=== PATIENT | male | born 1965 | race Two or more races ===

== ENCOUNTER 2020-05-08 07:20 | Emergency (ER) | payer SELFPAY ==
[2020-05-08] MEDS ORDERED: Ondansetron 4 MG/2 ML SDV IVPUSH ONE (07:52)
[2020-05-08] MEDS ORDERED: Sodium Chloride 0.9% 10 ML Syringe FLUSH PRN (07:52)
[2020-05-08] MEDS ORDERED: Sodium Chloride 0.9% 1,000 ML IV SCH (08:00)
--- NOTE | 2020-05-08 11:11 | US ---
Limited abdominal ultrasound: Multiple real-time images of the upper right abdomen were obtained. Comparison: No previous abdominal imaging is available. Findings: Liver contains no focal abnormality. CHD and CBD are dilated up to 1.7 cm. Mild intrahepatic biliary duct dilatation is also noted. No definite filling defects are seen within the dilated biliary ducts. Previous cholecystectomy is noted. Pancreas is mostly obscured from bowel gas. Inferior vena cava is patent. Main portal vein shows normal hepatopedal flow. Right kidney shows no hydronephrosis or mass. Right kidney has a length of 12.7 cm. Impression: 1. Prominently dilated CHD and CBD measuring up to 1.7 cm. Mild intrahepatic biliary duct dilatation is seen. Previous cholecystectomy is noted. 2. No additional abnormality is appreciated on right upper quadrant abdominal ultrasound. Diagnostic code #3 This report was dictated in MDT
--- NOTE | 2020-05-08 11:32 | EDM.PDOC ---
ED HPI GENERAL MEDICAL PROBLEM - General Chief Complaint: Abdominal Pain Stated Complaint: ABD PAIN/VOMITTING Time Seen by Provider: 05/08/20 07:49 Source of Information: Reports: Patient, RN Notes Reviewed - History of Present Illness INITIAL COMMENTS - FREE TEXT/NARRATIVE: 55 yr old male has been ill for about 3 days with abd pain, off and on vomiting. Pain is RUQ and upper mid abd. Hx of previous cholecystectomy. Does not drink alcohol. The pain has been steady, does not go away. Eating makes the pain and N/Vomiting worse. No chest pain, cough, fever or difficulty breathing. Abdomen Pain Score (Numeric/FACES): 10 - Related Data Allergies Allergy/AdvReac Type Severity Reaction Status Date / Time No Known Allergies Allergy Verified 05/08/20 07:38 Home Meds: Home Meds . [No Known Home Meds] 05/08/20 [History] Past Medical History - Past Surgical History GI Surgical History: Reports: Cholecystectomy Social & Family History - Tobacco Use Smoking Status *Q: Never Smoker Second Hand Smoke Exposure: No - Caffeine Use Caffeine Use: Reports: Coffee - Recreational Drug Use Recreational Drug Use: No ED ROS GENERAL - Review of Systems Review Of Systems: See Below Constitutional: Reports: Chills. Denies: Fever HEENT: Reports: No Symptoms Respiratory: Denies: Shortness of Breath, Cough Cardiovascular: Denies: Chest Pain GI/Abdominal: Reports: Abdominal Pain, Nausea, Vomiting. Denies: Hematochezia, Melena Musculoskeletal: Reports: Back Pain Skin: Reports: Jaundice Neurological: Reports: Dizziness ED EXAM, GI/ABD - Physical Exam Exam: See Below General Appearance: Alert, Mild Distress Eyes: Bilateral: Pale Conjunctiva (bilat sclera icterus) Head: Atraumatic. No: Facial Swelling Neck: Supple Respiratory/Chest: No Respiratory Distress, Lungs Clear, Normal Breath Sounds Cardiovascular: Regular Rate, Rhythm GI/Abdominal Exam: Tender (R upper abd and upper mid abd) Back Exam: No: CVA Tenderness (L), CVA Tenderness (R) Extremities: Normal Inspection. No: Pedal Edema, Leg Pain Neurological: Alert, Oriented, No Motor/Sensory Deficits Skin Exam: Warm, Dry, No Rash Course - Vital Signs Last Recorded V/S: Last Vital Signs Temp 100.8 F H 05/08/20 12:58 Pulse 74 05/08/20 11:50 Resp 16 05/08/20 11:50 BP 153/97 H 05/08/20 11:50 Pulse Ox 98 05/08/20 11:50 - Orders/Labs/Meds Orders: Active Orders 24 hr Category Date Time Status Peripheral IV Care [RC] . DIRECTED Care 05/08/20 07:52 Active Sodium Chloride 0.9% [Normal Saline] 1,000 ml Med 05/08/20 08:00 Active IV ONETIME Sodium Chloride 0.9% [Saline Flush] Med 05/08/20 07:52 Active 10 ml FLUSH ASDIRECTED PRN Peripheral IV Insertion Adult [OM.PC] Stat Oth 05/08/20 07:52 Ordered Medication Orders Sodium Chloride (Normal Saline) 1,000 mls @ 999 mls/hr IV ONETIME BRITNEY Last Admin: 05/08/20 08:17 Dose: 999 mls/hr Documented by: MINAL Sodium Chloride (Saline Flush) 10 ml FLUSH ASDIRECTED PRN PRN Reason: Keep Vein Open Last Admin: 05/08/20 08:17 Dose: 10 ml Documented by: MINAL Labs: Laboratory Tests 05/08/20 05/08/20 05/08/20 Range/Units 07:55 07:55 07:55 WBC 8.47 (4.23-9.07) K/mm3 RBC 6.03 (4.63-6.08) M/mm3 Hgb 15.1 (13.7-17.5) gm/dl Hct 45.3 (40.1-51.0) % MCV 75.1 L (79.0-92.2) fl MCH 25.0 L (25.7-32.2) pg MCHC 33.3 (32.2-35.5) g/dl RDW Std Deviation 44.5 H (35.1-43.9) fL Plt Count 225 (163-337) K/mm3 MPV 10.5 (9.4-12.3) fl Neut % (Auto) 77.8 H (34.0-67.9) % Lymph % (Auto) 10.3 L (21.8-53.1) % [place] % (Auto) 11.5 (5.3-12.2) % Eos % (Auto) 0.1 L (0.8-7.0) Baso % (Auto) 0.1 (0.1-1.2) % Neut # (Auto) 6.59 H (1.78-5.38) K/mm3 Lymph # (Auto) 0.87 L (1.32-3.57) K/mm3 [place] # (Auto) 0.97 H (0.30-0.82) K/mm3 Eos # (Auto) 0.01 L (0.04-0.54) K/mm3 Baso # (Auto) 0.01 (0.01-0.08) K/mm3 Sodium 136 (136-145) mEq/L Potassium 3.4 L (3.5-5.1) mEq/L Chloride 98 (98-107) mEq/L Carbon Dioxide 26 (21-32) mEq/L Anion Gap 15.4 H (5-15) BUN 19 H (7-18) mg/dL Creatinine 0.9 (0.7-1.3) mg/dL Est Cr Clr Drug Dosing 93.83 mL/min Estimated GFR (MDRD) > 60 (>60) mL/min BUN/Creatinine Ratio 21.1 H (14-18) Glucose 124 H (74-106) mg/dL Calcium 8.7 (8.5-10.1) mg/dL Total Bilirubin 9.5 H (0.2-1.0) mg/dL GGT 1543 H (15-85) U/L AST 153 H (15-37) U/L ALT 471 H (16-63) U/L Alkaline Phosphatase 357 H (46-116) U/L Total Protein 7.4 (6.4-8.2) g/dl Albumin 3.1 L (3.4-5.0) g/dl Globulin 4.3 gm/dL Albumin/Globulin Ratio 0.7 L (1-2) Lipase 74 (73-393) U/L Meds: Medications Generic Name Dose Route Start Last Admin Trade Name Freq PRN Reason Stop Dose Admin Sodium Chloride 1,000 mls @ 999 mls/hr 05/08/20 08:00 05/08/20 08:17 Normal Saline IV 999 mls/hr ONETIME BRITNEY Administration Sodium Chloride 10 ml 05/08/20 07:52 05/08/20 08:17 Saline Flush FLUSH 10 ml ASDIRECTED PRN Administration Keep Vein Open Discontinued Medications Generic Name Dose Route Start Last Admin Trade Name Paige PRN Reason Stop Dose Admin Acetaminophen 975 mg 05/08/20 12:53 05/08/20 12:58 Tylenol PO 05/08/20 12:54 975 mg NOW ONE Administration Hydromorphone HCl 0.5 mg 05/08/20 11:43 05/08/20 11:48 Dilaudid IVPUSH 05/08/20 11:44 0.5 mg ONETIME ONE Administration Ondansetron HCl 4 mg 05/08/20 07:52 05/08/20 08:15 Zofran IVPUSH 05/08/20 07:53 4 mg ONETIME ONE Administration - Re-Assessments/Exams Free Text/Narrative Re-Assessment/Exam: 05/08/20 09:30 Labs have come back showing bilirubin of 9.5, liver enzymes mildly elevated. He has hx of prior cholecystectomy, will check GGT, US GB. He has not eaten this AM. He also states he does not drink alcohol. 05/08/20 11:30. US shows CHD and CBD dilated up to 1.7 cm. Intrahepatic biliary duct dilitation also noted. See Radiology report for details. GGT 1543. 11:48. Have checked with both [facility], they are both on diversion. Have checked with [facility], they are also on diversion. 05/08/20 12:45. Dr Puckett, accepting Phys. [facility]. accepting Phys. We are sending him by [facility] fixed wing. Departure - Departure Time of Disposition: 12:45 Disposition: DC/Tfer to Acute Hospital 02 Condition: Fair Clinical Impression: Obstructive jaundice - Discharge Information Referrals: PCP,None [Primary Care Provider] - Forms: ED Department Discharge Sepsis Event Note (ED) - Evaluation Sepsis Screening Result: No Definite Risk - Focused Exam Vital Signs: Vital Signs Temp Temp Pulse Resp BP Pulse Ox 05/08/20 12:58 100.8 F H 05/08/20 11:50 99.7 F 74 16 153/97 H 98 05/08/20 07:25 97.0 F 80 16 165/108 H 97 - My Orders Last 24 Hours: My Active Orders 05/08/20 07:52 Peripheral IV Care [RC] . DIRECTED Sodium Chloride 0.9% [Saline Flush] 10 ml FLUSH ASDIRECTED PRN Peripheral IV Insertion Adult [OM.PC] Stat 05/08/20 08:00 Sodium Chloride 0.9% [Normal Saline] 1,000 ml IV ONETIME - Assessment/Plan Last 24 Hours: My Active Orders 05/08/20 07:52 Peripheral IV Care [RC] . DIRECTED Sodium Chloride 0.9% [Saline Flush] 10 ml FLUSH ASDIRECTED PRN Peripheral IV Insertion Adult [OM.PC] Stat 05/08/20 08:00 Sodium Chloride 0.9% [Normal Saline] 1,000 ml IV ONETIME
[2020-05-08] MEDS ORDERED: HYDROmorphone 0.5 MG/0.5 ML Syringe IVPUSH ONE (11:43)
[2020-05-08] MEDS ORDERED: Acetaminophen 325 MG Tab PO ONE (12:53)
== END 2020-05-08 13:05 ==
LOC: JD.ED 07:20
DX: K83.1 Obstruction of bile duct (principal)
CPT/HCPCS: 36415; 76705; 80053; 82977; 83690; 85025; 96361; 96374; 96375; 99285; A9270; J1170; J2405; J7030; 99284